=== PATIENT | female | born 1970 | race Caucasian/White ===

== ENCOUNTER 2019-01-31 23:26 | Emergency (ER) | payer OTHER ==
[2019-01-31 23:48] VITALS: BMI 28.1
--- NOTE | 2019-02-01 03:02 | PDOC ---
History of Present Illness - General Chief Complaint: Diarrhea Stated Complaint: DIARREHA - History of Present Illness Initial Comments: The pt is a 48F w/ no reported PMH who presents for evaluation of 4 days of N/V/ D s/p a recent trip to [place] last week. Pt endorses 3 sick contacts w/ similar symptoms. Pt reports emesis was NBNB and diarrhea was NB. She has not tried taking anything for her symptoms. Reports initial subjective fevers that have since resolved. Denies vision changes, ASHRAF, chest pain, SOB, abdominal pain, dysuria, hematuria, or blood in her stool 02/01/19 04:10 Past History - Past Medical History Allergies/Adverse Reactions: Allergies Allergy/AdvReac Type Severity Reaction Status Date / Time No Known Allergies Allergy Verified 01/31/19 23:48 Home Medications: Ambulatory Orders NK [No Known Home Medication] 02/01/19 COPD: No - Suicide/Smoking/Psychosocial Hx Smoking History: Never smoked Have you smoked in the past 12 months: No Information on smoking cessation initiated: No Hx Alcohol Use: No Drug/Substance Use Hx: No Review of Systems - Review of Systems Able to Perform ROS?: Yes Comments:: GENERAL/CONSTITUTIONAL: No fever or chills. No weakness HEAD, EYES, EARS, NOSE AND THROAT: No change in vision. No ear pain or discharge. No sore throat CARDIOVASCULAR: No chest pain or shortness of breath RESPIRATORY: Denies cough, hemoptysis GENITOURINARY: No dysuria, frequency, or change in urination MUSCULOSKELETAL: No joint or muscle swelling or pain. No neck or back pain SKIN: No rash NEUROLOGIC: No headache, vertigo, loss of consciousness, or change in strength/ sensation ENDOCRINE: No increased thirst. No abnormal weight change HEMATOLOGIC/LYMPHATIC: No anemia, easy bleeding, or history of blood clots ALLERGIC/IMMUNOLOGIC: No hives or skin allergy Is the patient limited Yakut proficient: No *Physical Exam - Vital Signs Last Vital Signs Temp Pulse Resp BP Pulse Ox 98.8 F 77 18 118/73 97 01/31/19 23:46 01/31/19 23:46 01/31/19 23:46 01/31/19 23:46 01/31/19 23:46 - Physical Exam Comments: GENERAL: Awake, alert, and oriented to person/place/time, in no acute distress HEAD: No signs of trauma, normocephalic, atraumatic EYES: PERRLA, EOMI, sclera anicteric, conjunctiva clear ENT: Hearing grossly normal, nares patent, oropharynx clear without exudates. Dry mucosa LUNGS: No distress, speaks full sentences, clear to auscultation bilaterally HEART: Regular rate and rhythm, normal S1 and S2, no murmurs appreciated, peripheral pulses normal and equal bilaterally ABDOMEN: Soft, nontender, normoactive bowel sounds. No guarding, no rebound EXTREMITIES: Normal inspection, Normal range of motion, no edema. No clubbing or cyanosis NEUROLOGICAL: Cranial nerves II through XII grossly intact. Normal speech, normal gait, no focal sensorimotor deficits SKIN: Warm, Dry 02/01/19 06:39 ED Treatment Course - LABORATORY CBC & Chemistry Diagram: 02/01/19 03:20 02/01/19 03:20 Medical Decision Making - Medical Decision Making The pt is a 48F w/ no reported PMH who presents for evaluation of 4 days of N/V/ D s/p recent trip to [place] w/ multiple sick contacts with similar symptoms, likely 2/2 viral gastroenteritis Pt afebrile, less likely bacterial. ED Course Labs sent IVF Zofran, Pepcid No leukocytosis No anemia Lytes wnl No TEMITOPE LFTs wnl Lipase wnl Pt feels improved s/p fluids/meds Pt tolerating PO in ED Plan for D/C w/ PCP f/u Discharge instructions and return precautions given Pt in agreement and verbalized understanding Dispo: home 02/01/19 06:39 *DC/Admit/Observation/Transfer Diagnosis at time of Disposition: Viral syndrome, Gastroenteritis - Discharge Dispostion Disposition: HOME Condition at time of disposition: Improved Decision to Admit order: No - Referrals Referrals: [facility] – [place] [facility] [place] [Provider Group] - Patient Instructions Printed Discharge Instructions: DI for Viral Gastroenteritis -- Adult Additional Instructions: You were seen in the Emergency Department for evaluation of nausea and vomiting. Print Language: SERBIAN - Post Discharge Activity
[2019-02-01] MEDS ORDERED: SODIUM CHLORIDE 0.9% 500 ML INFUS.BAG IV ONE (03:14)
[2019-02-01] MEDS ORDERED: ONDANSETRON 4 MG/2 ML VIAL IVPUSH ONE (03:14)
[2019-02-01] MEDS ORDERED: FAMOTIDINE 20 MG/50 ML IVPB 20 MG/50 ML MG IVPB ONE (03:14)
--- NOTE | 2019-02-01 03:14 | PDOC ---
Attending Attestation - Resident Resident Name: Tony Reyna - ED Attending Attestation I have performed the following: I have examined & evaluated the patient, The case was reviewed & discussed with the resident, I agree w/resident's findings & plan - HPI HPI: 02/01/19 03:11 48-year-old female complaining of vomiting diarrhea and nausea after a trip abroad to [facility]. Her granddaughter grandson and grandsons girlfriend all have the same complaints, They all ate questionable food on the trip. - Physicial Exam PE: 02/01/19 03:13 Agree with resident's exam - Medical Decision Making 02/01/19 03:14 48-year-old female with vomiting and diarrhea Plan for IV fluids Pepcid and Zofran with likely discharged home after by mouth challenge
[2019-02-01] MEDS ORDERED: ONDANSETRON 4 MG/2 ML VIAL ONE (03:24)
[2019-02-01 03:38] LABS: BASO % 0.5 % (0-2.0); EOS % 0.7 % (0-4.5); HEMOGLOBIN 13.1 GM/dL (10.7-15.3); LYMPH % 31.2 % (8-40); MCH 29.9 pg (25.7-33.7); MCHC 33.5 g/dl (32.0-36.0); MEAN CELL VOLUME 89.3 fl (80-96); MEAN PLT VOLUME 7.5 fl (7.5-11.1); MONO % 11.6 % (3.8-10.2); PLATELET COUNT 264 K/MM3 (134-434); RBC 4.37 M/mm3 (3.60-5.2); RDW 13.3 % (11.6-15.6); WHITE BLOOD COUNT 5.6 K/mm3 (4.0-10.0)
[2019-02-01 04:09] LABS: ALBUMIN 3.4 g/dl (3.4-5.0); ALK PHOS 132 U/L (45-117); ANION GAP 8 MMOL/L (8-16); BILIRUBIN,TOTAL 0.3 mg/dL (0.2-1); BLOOD UREA NITROGEN 10 mg/dL (7-18); CALCIUM 8.3 mg/dL (8.5-10.1); CHLORIDE 105 mmol/L (98-107); CO2 25 mmol/L (21-32); CREATININE 0.5 mg/dL (0.55-1.3); GLUCOSE,RANDOM 80 mg/dL (74-106); LIPASE 80 U/L (73-393); POTASSIUM 3.4 mmol/L (3.5-5.1); SGOT/AST 54 U/L (15-37); SGPT/ALT 96 U/L (13-61); SODIUM 138 mmol/L (136-145); TOT PROT 7.1 g/dl (6.4-8.2)
[2019-02-01 06:15] VITALS: BP 122/73; PULSE 65; TEMP 98
== END 2019-02-01 06:16 | disposition home or self-care (01) ==
LOC: JER 23:26
PROC: 3E033GC Introduction of Other Therapeutic Substance into Peripheral Vein, Percutaneous Approach (ICD-10-PCS; principal; 2019-01-31)
PROC: 3E033GC Introduction of Other Therapeutic Substance into Peripheral Vein, Percutaneous Approach (ICD-10-PCS; 2019-01-31)
DX: A08.4 Viral intestinal infection, unspecified (principal); B97.89 Other viral agents as the cause of diseases classified elsewhere
CPT/HCPCS: 36415; 80053; 83690; 85025; 96365; 96375; 99282-25

== ENCOUNTER 2019-12-04 22:02 | Emergency (ER) | payer OTHER ==
[2019-12-04 22:06] VITALS: BP 119/40; PULSE 64; TEMP 97.6; BMI 34.0
--- NOTE | 2019-12-05 00:20 | PDOC ---
History of Present Illness - General Chief Complaint: Vomiting/Diarrhea Stated Complaint: VOMITING/ DIARRHEA Time Seen by Provider: 12/04/19 23:42 History Source: Patient Exam Limitations: No Limitations - History of Present Illness Initial Comments: 12/05/19 03:46 49 yo F with no past medical history presents to the emergency department with N /V/D with a concurrent headache. Per the patient, she had sudden onset of symptoms at approximately 7:00 pm with the headache located in the temporal region with a bandlike distribution. The patient states she has had approximately 5x episodes of vomiting without hematemesis and 5x diarrhea episodes without hematochezia. Headache described as achy like pain without worsening or aggravating factors. Denies abdominal pain. Denies the following: fevers, chills, SOB, chest pain, ears/nose/throat pain, visual disturbance, back pain, dysuria, hematuria, urinary frequency, and constipation. Allergies: NKDA == Past History - Past Medical History Allergies/Adverse Reactions: Allergies Allergy/AdvReac Type Severity Reaction Status Date / Time No Known Allergies Allergy Verified 12/04/19 22:06 Home Medications: Ambulatory Orders NK [No Known Home Medication] 02/01/19 COPD: No - Psycho Social/Smoking Cessation Hx Smoking History: Never smoked Have you smoked in the past 12 months: No Hx Alcohol Use: No Drug/Substance Use Hx: No Review of Systems - Review of Systems Able to Perform ROS?: Yes Is the patient limited Greek proficient: No Constitutional: No: Chills, Diaphoresis, Fever, Weakness HEENTM: No: Eye Pain, Ear Pain, Nose Pain, Throat Pain, Mouth Pain Respiratory: No: Cough, Shortness of Breath, Hemoptysis Cardiac (ROS): No: Chest Pain, Lightheadedness, Palpitations, Chest Tightness ABD/GI: Yes: Diarrhea, Nausea, Vomiting. No: Constipated, Rectal Bleeding, Tarry Stools : No: Burning, Dysuria, Hematuria Musculoskeletal: No: Back Pain, Joint Pain, Neck Pain Integumentary: No: Bruising, Erythema, Rash Neurological: Yes: Headache Psychiatric: No: Change in Appetite Endocrine: No: Unexplained Weight Loss Hematologic/Lymphatic: No: Anemia *Physical Exam - Vital Signs Last Vital Signs Temp Pulse Resp BP Pulse Ox 97.6 F 64 18 119/40 L 100 12/04/19 22:03 12/04/19 22:03 12/04/19 22:03 12/04/19 22:03 12/04/19 22:03 - Physical Exam General Appearance: Yes: Nourished, Appropriately Dressed, Obese. No: Apparent Distress, Intoxicated HEENT: positive: EOMI, CHRISTINA, Normal Voice, Symmetrical, Pharynx Normal, Hearing Grossly Normal. negative: Pale Conjunctivae, Scleral Icterus (R), Scleral Icterus (L), Muffled/Hoarse voice, Pharyngeal Erythema, Tonsillar Exudate, Tonsillar Erythema, Nasal Congestion, Rhinorrhea, Sinus Tenderness, Excessive drooling Neck: positive: Trachea midline, Supple. negative: Tender, Lymphadenopathy (R) , Lymphadenopathy (L), Tender lateral, Tender midline Respiratory/Chest: positive: Lungs Clear, Normal Breath Sounds. negative: Chest Tender, Respiratory Distress, Accessory Muscle Use, Crackles, Rales, Rhonchi, Stridor, Wheezing Cardiovascular: positive: Regular Rhythm, Regular Rate, S1, S2. negative: Systolic Murmur Gastrointestinal/Abdominal: positive: Normal Bowel Sounds, Flat, Soft. negative : Tender, Distended, Guarding, Rebound Lymphatic: negative: Adenopathy Musculoskeletal: positive: Normal Inspection. negative: CVA Tenderness, Vertebral Tenderness Extremity: positive: Normal Capillary Refill, Normal Inspection, Normal Range of Motion. negative: Tender, Swelling, Calf Tenderness Integumentary: positive: Normal Color, Dry, Warm Neurologic: positive: Fully Oriented, Alert, Normal Mood/Affect, Motor Strength 5/5 ED Treatment Course - LABORATORY CBC & Chemistry Diagram: 12/05/19 00:15 12/05/19 00:15 Medical Decision Making - Medical Decision Making 49 yo F with no past medical history presents to the emergency department with N /V/D with a concurrent headache. Per the patient, she had sudden onset of symptoms at approximately 7:00 pm with the headache located in the temporal region with a bandlike distribution Initial vitals: Initial Vital Signs Temp Pulse Resp BP Pulse Ox 97.6 F 64 18 119/40 L 100 12/04/19 22:03 12/04/19 22:03 12/04/19 22:03 12/04/19 22:03 12/04/19 22:03 Work up: patient presents with N/V/D with headache. likely the patient is having gastroenteritis. no tenderness on abdomen with palpation or rebound tenderness. ddx: viral gastroenteritis vs acs vs URI vs UTI Laboratory Tests 12/05/19 12/05/19 12/05/19 00:15 00:15 00:15 WBC 11.7 H RBC 4.58 Hgb 13.5 Hct 40.9 MCV 89.4 MCH 29.6 MCHC 33.1 RDW 13.3 Plt Count 322 D MPV 8.0 Absolute Neuts (auto) 9.9 H Neutrophils % 84.7 H D Lymphocytes % 11.6 D Monocytes % 3.2 L Eosinophils % 0.1 D Basophils % 0.4 Nucleated RBC % 0 PT with INR INR Sodium 141 Potassium 4.7 Chloride 108 H Carbon Dioxide 26 Anion Gap 7 L BUN 10.6 Creatinine 0.6 Est GFR (CKD-EPI)AfAm 124.92 Est GFR (CKD-EPI)NonAf 107.78 Random Glucose 104 Lactic Acid 0.9 Calcium 8.9 Total Bilirubin 0.5 AST 40 H ALT 73 H Alkaline Phosphatase 115 Creatine Kinase 112 Troponin I < 0.02 Total Protein 7.7 Albumin 3.7 Urine Color Urine Appearance Urine pH Ur Specific [place] Urine Protein Urine Glucose (UA) Urine Ketones Urine Blood Urine Nitrite Urine Bilirubin Urine Urobilinogen Ur Leukocyte Esterase Urine WBC (Auto) Urine RBC (Auto) Urine Casts (Auto) U Epithel Cells (Auto) Urine Bacteria (Auto) 12/05/19 12/05/19 00:15 02:44 WBC RBC Hgb Hct MCV MCH MCHC RDW Plt Count MPV Absolute Neuts (auto) Neutrophils % Lymphocytes % Monocytes % Eosinophils % Basophils % Nucleated RBC % PT with INR 12.50 INR 1.06 Sodium Potassium Chloride Carbon Dioxide Anion Gap BUN Creatinine Est GFR (CKD-EPI)AfAm Est GFR (CKD-EPI)NonAf Random Glucose Lactic Acid Calcium Total Bilirubin AST ALT Alkaline Phosphatase Creatine Kinase Troponin I Total Protein Albumin Urine Color Yellow Urine Appearance Cloudy Urine pH 6.5 Ur Specific [place] 1.013 Urine Protein Negative Urine Glucose (UA) Negative Urine Ketones Negative Urine Blood Trace Urine Nitrite Negative Urine Bilirubin Negative Urine Urobilinogen 0.2 Ur Leukocyte Esterase Trace Urine WBC (Auto) 16 Urine RBC (Auto) 9 Urine Casts (Auto) 2 U Epithel Cells (Auto) 8.8 Urine Bacteria (Auto) 384.6 UA shows 16 wbc with epithelials cells. patient denies urinary symptoms. will obtain culture and will provide abx if positive labs within normal limits patient was given a GI cocktail with fluids and had resolution of symptoms patient to be discharged with follow up with primary medical doctor. EKG: Sinus duane cardia 54 bpn with ND of [address] elevations or depressions. TWI in iii. Dispo: Discharge 12/05/19 15:05 Discharge - Discharge Information Problems reviewed: Yes Clinical Impression/Diagnosis: Nausea & vomiting, Diarrhea Condition: Stable Disposition: HOME - Admission No - Follow up/Referral Referrals: [facility] [place] [facility] [place] [Provider Group] - Patient Discharge Instructions Patient Printed Discharge Instructions: DI for Diarrhea and Traveler's Diarrhea -- Adult, DI for Nausea -- Adult, DI for Vomiting -- Adult Additional Instructions: You were seen in the emergency department for the evaluation of your abdominal pain. Please follow up with your primary medical doctor or the one referred to you in the paperwork within 1 week after discharge for follow up care and management. Please return to the emergency department if you have worsening symptoms or new concerning symptoms. Thank you. Your labs were within normal limits. - Post Discharge Activity
[2019-12-05] MEDS ORDERED: ACETAMINOPHEN 1000 MG/100 ML VIAL (NON FORMULARY) IVPB ONE (00:22)
[2019-12-05] MEDS ORDERED: MAG HYDROX/AL HYDROX/SIMETH 30 ML UNIT-DOSE CUP PO ONE (00:22)
[2019-12-05] MEDS ORDERED: ONDANSETRON 4 MG/2 ML VIAL IVPUSH ONE (00:22)
[2019-12-05] MEDS ORDERED: FAMOTIDINE 20 MG/50 ML IVPB 20 MG/50 ML MG IVPB ONE ×2 (00:22→00:59)
[2019-12-05] MEDS ORDERED: SODIUM CHLORIDE 1,000 ML IV STA (00:22)
[2019-12-05 00:40] LABS: BASO % 0.4 % (0-2.0); EOS % 0.1 % (0-4.5); HEMATOCRIT 40.9 % (32.4-45.2); HEMOGLOBIN 13.5 GM/dL (10.7-15.3); LYMPH % 11.6 % (8-40); MCH 29.6 pg (25.7-33.7); MCHC 33.1 g/dl (32.0-36.0); MEAN CELL VOLUME 89.4 fl (80-96); MONO % 3.2 % (3.8-10.2); NEUT % 84.7 % (42.8-82.8); PLATELET COUNT 322 K/MM3 (134-434); RBC 4.58 M/mm3 (3.60-5.2); RDW 13.3 % (11.6-15.6); WHITE BLOOD COUNT 11.7 K/mm3 (4.0-10.0)
--- NOTE | 2019-12-05 00:47 | PDOC ---
Documentation entered by Amber Forrest SCRIBE, acting as scribe for Patricia Mcneill MD. Patricia Mcneill MD: This documentation has been prepared by the [email or web address], Amber Forrest SCRIBE, under my direction and personally reviewed by me in its entirety. I confirm that the documentation accurately reflects all work, treatment, procedures, and medical decision making performed by me. Attending Attestation - Resident Resident Name: Aman Durand - ED Attending Attestation I have performed the following: I have examined & evaluated the patient, The case was reviewed & discussed with the resident, I agree w/resident's findings & plan, Exceptions are as noted - HPI HPI: 12/05/19 00:21 The patient is a 49-year-old female with no significant past medical history who presents to the emergency department with nausea, vomiting, diarrhea, and a headache. The patient reports the acute onset of nausea, vomiting, diarrhea, and a frontal headache at 7:00 pm today. The patient states she had about five episodes of vomiting and five episodes of diarrhea. Denies any abdominal pain. Allergies: NKA Social history: No reported tobacco, alcohol, or recreational drug use. Surgical history: Ankle surgery, . - Physicial Exam PE: 12/05/19 00:21 GENERAL: Well-appearing, well-nourished. No apparent distress. HEENT: Normocephalic, atraumatic. PERRL, EOM intact. CARDIOVASCULAR: Regular rate and rhythm. PULMONARY: Clear to auscultation bilaterally. ABDOMEN: Soft, non-distended, non-tender. EXTREMITIES: Normal ROM in all four extremities. No gross deformities. SKIN: Warm, dry. No rash NEUROLOGICAL: No focal neurological deficits. - Medical Decision Making 12/05/19 00:46 49-year-old female started to have nausea vomiting diarrhea this evening at 7 PM she also said that when she was vomiting she developed a headache. Benign abdominal exam Impression gastritis, gastroenteritis gas cholecystitis Plan IV fluids, Zofran, CBC chemistry and reassessment 12/05/19 02:04 Patient feels much better after IV fluids and Zofran was discharged home
[2019-12-05 00:52] LABS: INR 1.06 (0.83-1.09); PROTHROMBIN TIME (PATIENT) 12.5 SEC (9.7-13.0)
[2019-12-05] MEDS ORDERED: ACETAMINOPHEN INJECTION 100 ML IVPB ONE (00:58)
[2019-12-05] MEDS ORDERED: ONDANSETRON 4 MG/2 ML VIAL ONE (00:59)
[2019-12-05] MEDS ORDERED: MAG HYDROX/AL HYDROX/SIMETH 30 ML UNIT-DOSE CUP ONE (00:59)
[2019-12-05 01:07] LABS: ALBUMIN 3.7 g/dl (3.4-5.0); ALK PHOS 115 U/L (45-117); ANION GAP 7 MMOL/L (8-16); BILIRUBIN,TOTAL 0.5 mg/dL (0.2-1); BLOOD UREA NITROGEN 10.6 mg/dL (7-18); CALCIUM 8.9 mg/dL (8.5-10.1); CHLORIDE 108 mmol/L (98-107); CO2 26 mmol/L (21-32); CREATININE 0.6 mg/dL (0.55-1.3); GLUCOSE,RANDOM 104 mg/dL (74-106); POTASSIUM 4.7 mmol/L (3.5-5.1); SGOT/AST 40 U/L (15-37); SGPT/ALT 73 U/L (13-61); SODIUM 141 mmol/L (136-145); TOT PROT 7.7 g/dl (6.4-8.2)
[2019-12-05 03:39] LABS: EPI CELLS 8.8 /HPF (0-5/HPF); HYALINE CASTS 2 /lpf (0-8); PH,URINE 6.5 (5.0-8.0); URINE APPEARANCE CLOUDY; URINE BACTERIA 384.6 /hpf (NEGATIVE); URINE BILIRUBIN NEGATIVE (NEGATIVE); URINE COLOR YELLOW; URINE GLUCOSE (UA) NEGATIVE (NEGATIVE); URINE KETONE NEGATIVE (NEGATIVE); URINE LEUK ESTERASE TRACE (NEGATIVE); URINE NITRITE NEGATIVE (NEGATIVE); URINE PROTEIN NEGATIVE (NEGATIVE); URINE RBC 9 /hpf (0-4); URINE UROBILINOGEN 0.2 mg/dL (0.2-1.0); URINE WBC 16 /hpf (0-5)
--- NOTE | 2019-12-05 09:40 | EKG ---
Test Reason : Blood Pressure : / mmHG Vent. Rate : 054 BPM Atrial Rate : 054 BPM P-R Int : 204 ms QRS Dur : 088 ms QT Int : 388 ms P-R-T Axes : 045 014 021 degrees QTc Int : 367 ms SINUS BRADYCARDIA POSSIBLE INFERIOR INFARCT , AGE UNDETERMINED ABNORMAL ECG NO PREVIOUS ECGS AVAILABLE Confirmed by Lucian Doe MD ([id number]) on 12/05/2019 9:40:01 AM Referred By: Confirmed By:Lucian Doe MD
== END 2019-12-05 04:45 | disposition home or self-care (01) ==
LOC: JER 22:02
PROC: 3E033GC Introduction of Other Therapeutic Substance into Peripheral Vein, Percutaneous Approach (ICD-10-PCS; principal; 2019-12-04)
PROC: 3E033NZ Introduction of Analgesics, Hypnotics, Sedatives into Peripheral Vein, Percutaneous Approach (ICD-10-PCS; 2019-12-04)
PROC: 3E033GC Introduction of Other Therapeutic Substance into Peripheral Vein, Percutaneous Approach (ICD-10-PCS; 2019-12-04)
DX: K52.9 Noninfective gastroenteritis and colitis, unspecified (principal)
CPT/HCPCS: 36415; 80053; 81003; 82550; 83605; 84484; 85025; 85610; 87086; 93005; 93010; 96365; 96375; 99284-25; J0131; J7030